=== PATIENT | male | born 1950 | race Caucasian/White ===

== ENCOUNTER 2018-10-11 16:18 | Emergency (ER) | payer MEDICARE, SELFPAY ==
[2018-10-11 16:20] VITALS: BP 154/93; PULSE 92; RESP 20; TEMP 36.8; O2SAT 99; BMI 25.9
--- NOTE | 2018-10-11 16:23 | EKG12_ITS ---
Test Reason : CP Blood Pressure : / mmHG Vent. Rate : 091 BPM Atrial Rate : 091 BPM P-R Int : 238 ms QRS Dur : 094 ms QT Int : 364 ms P-R-T Axes : 067 034 053 degrees QTc Int : 447 ms Sinus rhythm with sinus arrhythmia with 1st degree A-V block with occasional Premature ventricular co mplexes Otherwise normal ECG Confirmed by ISAURO BARBOZA ([id number]), rewrite editor GUSTAVO CHAUDHARY ([id number]) on 10/14/2018 2:22:27 PM Referred By: CHAD Confirmed By:ISAURO BARBOZA
--- NOTE | 2018-10-11 16:25 | RAD_ITS ---
STUDY: X-RAY CHEST REASON FOR EXAM: Male, 67 years old. Substernal chest pain TECHNIQUE: Single AP portable view of the chest. COMPARISON: None. FINDINGS: EKG leads overlie the chest The lungs are clear and expanded. There is no demonstrated pleural abnormality. Normal size heart. Normal mediastinum and dejon. Normal visualized pulmonary arteries. Normal visualized aortic arch and descending thoracic aorta. Normal visualized thoracic spine. Normal visualized ribs, clavicles, and shoulders. There is a retrocardiac hiatal hernia RAD/Chest 1 View (Portable) IMPRESSION: No acute pulmonary process Electronically Signed: Jared Sosa MD at 16:40 EDT , Service support ,
--- NOTE | 2018-10-11 16:25 | NURSING ---
NO OLD EKGS
[2018-10-11] MEDS: Aspirin 81 MG TAB.CHEW 324 MG PO (16:28)
--- NOTE | 2018-10-11 16:31 | ED.DCSUM_ITS ---
History of Present Illness Chief Complaint: Chest Pain Informant: Patient Onset: Today Context: Sudden Onset Timing: Continuous Current Severity: Moderate Maximum Severity: Moderate Narrative: The patient presents to the emergency department with left-sided pain and chest pain. He states that he was driving today. He states that he had a sharp pain in his left lower ribs. He states that radiated to his chest. He did not feel short of breath. He does describe some pain when he takes a deep breath. States never really had pain like this before. He does have a history of iron deficiency anemia, but no history of coronary vascular disease. He does smoking. He denies any family history of heart disease. He states he never felt like this before. Prior similar symptoms: No Recent Illness/Hospitalization: No Past Medical History - Allergies and Home Meds Allergies/Adverse Reactions: Allergies No Known Allergies Allergy (Verified 10/11/18 16:23) Primary Care Physician: Care Physician,No Primary [Primary Care Provider] - (Your doctor In 3 days) Prior records reviewed: Yes Past Medical History: - - Iron deficiency anemia Smoking Status: Current every day smoker Review of Systems General: Denies: Chills, Fever, Sweats Eyes: Denies: Visual changes - bilaterally, Diplopia ENT: Denies: Rhinorrhea, Sore throat Cardiovascular: Reports: Chest pain. Denies: Palpitations Respiratory: Reports: Dyspnea. Denies: Cough, Dyspnea on exertion Gastrointestinal: Reports: Nausea. Denies: Abdominal pain, Vomiting, Diarrhea, Melena, Hematochezia Genitourinary: Denies: Dysuria, Hematuria, Frequency Musculoskeletal: Denies: Back pain, Extremity Pain Skin: Denies: Rash, Wounds Neurological: Denies: Headache, Weakness, Numbness Physical Exam Vital Signs/Narrative: Vital Signs Temp Pulse Resp BP Pulse Ox 10/11/18 16:20 98.3 F 92 20 H 154/93 H 99 Inital Vital Signs reviewed: Yes General: Well nourished, Well developed, No Acute Distress Head: Normocephalic, Atraumatic Eyes: Perrl, EOMI ENT: Moist mucous membranes, No rhinorrhea Neck: Supple, Nontender Cardiovascular: Regular rate, Regular rhythm, No murmurs Respiratory: No distress, CTA bilaterally, Chest nontender Abdomen: Soft, Nontender, Nondistended, Normal bowel sounds Back: Nontender, Normal Inspection Extremities: Nontender, No edema Skin: Normal color, No rash Neurological: Alert, Oriented x3, Cranial nerves II-XII grossly intact, Normal Strength, Normal Sensation Psychological: Normal affect, Normal Mood Diagnostic/Tx/Re-eval Chest X-Ray - ED: 1 View, Normal, Heart, Lungs, Mediastinum Clinical Impression(s) from Imaging Studies Chest X-Ray 10/11/18 16:25 IMPRESSION: No acute pulmonary process Electronically Signed: Jared Sosa MD at 16:40 EDT , Service support , Chest CTA 10/11/18 17:16 IMPRESSION: Multiple pulmonary emboli are seen within the right lower lobe pulmonary arteries as well as the right middle lobe pulmonary artery. The left pulmonary artery is clear No evidence of right heart strain Large hiatal hernia Individualized dose optimization techniques were used for this CT. at 1752 Reported and signed by: Urvashi Neff DO Electronically Signed: Urvashi Neff DO at 17:51 EDT Tel , Service support , ADDENDUM: 10/11/18 1800 IMPRESSION: Multiple pulmonary emboli are seen within the right lower lobe pulmonary arteries as well as the right middle lobe pulmonary artery. The left pulmonary artery is clear No evidence of right heart strain Large hiatal hernia Individualized dose optimization techniques were used for this CT. at 1752 Reported and signed by: Urvashi Neff DO N.B. : The above information has been verbally conveyed by Urvashi Neff DO to Dr. Arash Moreno MD, on 10/11/2018 17:53:04 (ET). Electronically Signed: Urvashi Neff DO at 17:51 EDT Tel , Service support , Abnormal Lab Results 10/11/18 10/11/18 10/11/18 16:45 16:45 16:45 WBC 9.8 RBC 4.16 L Hgb 10.1 L Hct 33.0 L MCV 79.3 L MCH 24.3 L MCHC 30.6 L RDW Std Deviation 55.9 H RDW Coeff of Reina 19.3 H Plt Count 392 MPV 10.2 Immature Gran % (Auto) 0.400 Neut % (Auto) 86.0 H Lymph % (Auto) 8.5 L Reeves % (Auto) 4.7 Eos % (Auto) 0.0 Baso % (Auto) 0.4 Absolute Neuts (auto) 8.4 H Absolute Lymphs (auto) 0.83 D-Dimer Quant (PE/DVT) 1.40 H* Sodium 138 Potassium 3.7 Chloride 107 Carbon Dioxide 24.0 Anion Gap 7 BUN 20 H Creatinine 1.15 Estim Creat Clear Calc 60.30 Est GFR (MDRD) Af Amer 81 Est GFR (MDRD) Non-Af 67 BUN/Creatinine Ratio 17.4 Glucose 119 H Calcium 8.5 Troponin I < 0.015 - Rhythm Strip Rhythm Strip: Sinus Rhythm Rate: 90 Ectopy: None - EKG Initial EKG Interpretation: Sinus Rhythm, No Acute Injury Pattern Prior: No Prior - Medical Decision Making The patient presents to the emergency department left-sided chest pain and nausea. EKG was obtained which showed sinus rhythm without acute ischemia. The patient was pain-free after aspirin. I did obtain a d-dimer which was elevated. Patient underwent CTA. This shows a large hiatal hernia. My suspicion is that this pain is likely secondary to this, but he also has small, nonocclusive, subsegmental PE in the right lower lobe. He has no hypoxia. He has no tachycardia. I did discuss the results with the patient. He lives in the [place] area and wants to do outpatient therapy. I feel this is reasonable given his stable vital signs and lack of dyspnea. Is actually able to discuss his care with his primary care physician from [place] who is in agreement. The patient will be started on oral anticoagulants. He will be discharged home. Impression 1. Right subsegmental pulmonary embolus ED Disposition - Plan for ED Patient: Disposition: Home or Assisted Living Instructions: Pulmonary Embolism Prescriptions: Apixaban [Eliquis] 5 mg PO DAILY #1 tab.ds.pk Prescription Printed Referrals: Care Physician,No Primary [Primary Care Provider] - (Your doctor In 3 days)
[2018-10-11 16:43] VITALS: BP 161/100; PULSE 80; RESP 18; O2SAT 99
[2018-10-11] MEDS: Nitroglycerin SL (ED/IMG/CATH) 0.4 MG TABLET SUBLINGUAL ×3 (16:43→16:56)
[2018-10-11 16:50] VITALS: BP 124/86; PULSE 87; RESP 16; O2SAT 97
[2018-10-11] MEDS: 0.9% Normal Saline 1,000 ML 150 ML IV (16:51)
[2018-10-11 16:55] VITALS: BP 130/84; PULSE 78; RESP 12; O2SAT 95
[2018-10-11 17:07] LABS: Hemoglobin 10.1 g/dL (13.0-16.5); Red Blood Count 4.16 M/mm3 (4.6-6.2); White Blood Count 9.8 K/mm3 (4.4-11.0)
[2018-10-11 17:08] LABS: Basophil% 0.4 % (0-1); Lymphocyte % 8.5 % (19-41); Mean Corp Hgb Conc 30.6 g/dL (32-36); Mean Corpuscular Hgb 24.3 pg (27.0-32.0); Mean Corpuscular Volume 79.3 fL (80-94); Mean Platelet Vol. 10.2 fl (6.2-12.0); Monocyte% 4.7 % (0-10); POSITIVE COUNT NO; POSITIVE DIFFERENTIAL NO; POSITIVE MORPHOLOGY NO; Platelet Count 392 K/mm3 (150-450); RBC Distribution Width CV 19.3 % (11.6-14.6); RBC Distribution Width SD 55.9 fl (35.1-43.9)
[2018-10-11 17:09] LABS: Absolute Lymphocyte Count 0.83 X10^3/uL (0.83-4.51); Absolute Neutrophil Count 8.4 X10^3/uL (2.0-7.7); Anion Gap 7 (5-15); BUN 20 mg/dL (7-18); BUN/Creat Ratio 17.4 RATIO (10-20); Basophil# 0.04 X10^3/uL; Calcium,Total 8.5 mg/dL (8.5-10.1); Chloride 107 mmol/L (98-107); Creatinine, Serum 1.15 mg/dL (0.70-1.30); EST Glomerular Filtration Rate 67 mL/min (>60); Est Glom Filt Rate - Afr Amer 81 mL/min (>60); Glucose 119 mg/dL (74-106); Lymphocyte # 0.83 X10^3/ul (4.0); Monocyte# 0.46 X10^3/uL; Neutrophil # 8.38 X10^3/uL (2.7-7.7); Potassium 3.7 mmol/L (3.5-5.1); Sodium Level 138 mmol/L (136-145)
--- NOTE | 2018-10-11 17:16 | CT_ITS ---
We are attempting to reach an attending provider to discuss findings. An addendum with communication details will be sent when the communication is complete. HISTORY:R/O PECHEST PAIN STARTED THIS AM TECHNIQUE:CTA Chest W/ IV Contrast (and W/O Contrast Images if performed) A CT of the chest was performed following the administration of 100CCml Isovue 370 Thin axial reconstructed images were performed through the pulmonary vasculature as per the routine pulmonary embolus protocol.MIP and mutiplanar reconstructions A dose optimization technique was used during the scan # of images including paperwork:[id number] Comparison: Chest radiograph obtained on October 11, 2018 FINDINGS: No aneurysm or dissection. There is no calcific plaque in the aorta. Pulmary arteries: There are pulmary emboli pulmonary emboli are seen within the right lower lobe pulmonary arteries. These can be seen on axial images 98 through 115 series 2 and on coronal images 117-145 series 601. This involves the artery to the right middle lobe also. No pulmonary emboli are seen within the left lung. The heart is mildly enlarged. The right to left heart ratio 0.8. The heart is mildly effaced by a large hiatal hernia. No pericardial effusion. No pleural effusion. . The lungs minimal groundglass opacity is seen within the right upper lobe. There is also dependent atelectasis in the lower lobes greater on the left.. Pneumpothorax: none The trachea and central airways appear patent . Limited views of the upper abdomen unremarkable No acute osseous abnormality. CT/CTA Chest W/WO Contrast IMPRESSION: Multiple pulmonary emboli are seen within the right lower lobe pulmonary arteries as well as the right middle lobe pulmonary artery. The left pulmonary artery is clear No evidence of right heart strain Large hiatal hernia Individualized dose optimization techniques were used for this CT. at 1752 Reported and signed by: Urvashi Neff DO Electronically Signed: Urvashi Neff DO at 17:51 EDT Tel , Service support ,
[2018-10-11 18:19] VITALS: BP 133/77; PULSE 80; RESP 15; O2SAT 98
[2018-10-11] MEDS: APIXABAN 5 MG TABLET 10 MG PO (18:50)
--- NOTE | 2018-10-11 18:50 | CM.ED ---
SOCIAL WORK INFORMANT: DR. BONILLA REASON FOR REFERRAL: RX INFORMATION PATIENT WITH PRESCRIPTION FOR ELIQUIS AND CONCERNED ABOUT COST. MET WITH PATIENT AND PATIENT'S SON IN ROOM. PATIENT PROVIDED WITH RX SAVINGS CARD FOR ELIQUIS. ALL QUESTIONS ANSWERED. NO FURTHER NEEDS AT THIS TIME. UPDATED DR. BONILLA. 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
== END 2018-10-11 18:56 | disposition home or self-care (01) ==
PROVIDERS: Emergency Provider Emergency Medicine
DX: I26.99 Other pulmonary embolism without acute cor pulmonale (principal); D50.9 Iron deficiency anemia, unspecified; F17.200 Nicotine dependence, unspecified, uncomplicated
CPT/HCPCS: 71045; 71275; 80048; 84484; 85025; 85379; 93005; 96360; 96361; 99285; Q9967; A4216